=== PATIENT | female | born 1995 | race Caucasian/White ===

== ENCOUNTER 2020-10-19 16:50 | Emergency (ER) | payer MEDICAID ==
[~2020-10-19] VITALS: Ht 157.5 cm; Wt 50.8 kg
--- NOTE | 2020-10-19 17:06 | NUR ---
BIBS FROM HOME TO ER BED 17. AAOX4. NOT IN RESP DISTRESS. AMBULATORY. APPEARS ANXIOUS. CAME IN FOR VAGINAL DISCHARGE DESCRIBED LIGHT BROWN LIGHT PINK DISCHARGE WHEN WIPPING STARTED YESTERDAY. PT REPORTS SHE IS PREGNENT 5 WEEKS. BEGGINGING OF LAST LMP 09/11/20. AWAITING MD.
[2020-10-19] MEDS ORDERED: IV NS 0.9% 1,000 ML BAG IV ONE (17:30)
[2020-10-19 17:40] LABS: BILIRUBIN,URINE NEGATIVE (NEGATIVE); COLOR,URINE YELLOW (YELLOW); LEUKOCYTE ESTERASE ,URINE NEGATIVE (NEGATIVE); NITRITE, URINE NEGATIVE (NEGATIVE); PROTEIN,URINE NEGATIVE (NEGATIVE); UGLUCOSE NEGATIVE (NEGATIVE); UROBILINOGEN,URINE 0.2 EU/dL (0.2)
--- NOTE | 2020-10-19 17:41 | NUR ---
pt refused IV NS. lab called for blood draw
[2020-10-19 18:01] LABS: BACTERIA,URINE None seen /HPF (None Seen); SQUAMOUS EPITHELIAL CELL,UR 0-2 /HPF (None Seen); WBC,URINE 0-2 /HPF (0-3)
[2020-10-19 18:09] LABS: BASOPHILS % (AUTO) 0.4 % (0.0-2.0); EOSINOPHILS % (AUTO) 1.2 % (0.0-6.0); HEMATOCRIT 37 % (33-45); HEMOGLOBIN 12.5 g/dL (11.5-14.8); LYMPHOCYTES # (AUTO) 1.6 /CMM (0.8-4.8); LYMPHOCYTES % (AUTO) 25.9 % (20.0-44.0); MEAN CORPUSCULAR HGB CONC 34 g/dl (31.0-36.0); MEAN CORPUSCULAR VOLUME 89 fL (82-100); MONOCYTES # (AUTO) 0.5 /CMM (0.1-1.30); MONOCYTES % (AUTO) 7.5 % (2.0-12.0); NEUTROPHILS # (AUTO) 4.1 /CMM (1.8-8.9); PLATELET COUNT (AUTO) 195 /CMM (150-450); RED BLOOD CELL COUNT(AUTO) 4.14 MIL/uL (4.0-5.2); WHITE BLOOD COUNT (AUTO) 6.3 K/uL (4.3-11.0)
[2020-10-19 18:25] LABS: CALCIUM, SERUM 9.1 mg/dL (8.5-10.1); CREATININE 0.6 mg/dL (0.6-1.3); POTASSIUM 4.2 mmol/L (3.5-5.1)
--- NOTE | 2020-10-19 18:37 | NUR ---
NOT CANDIDATE FOR RHOGAM
--- NOTE | 2020-10-19 19:45 | NUR ---
Patient discharged to home in stable condition. Written and verbal after care instructions given. Patient verbalizes understanding of instruction. pT ambulatory with a steady gait
[2020-10-19 19:59] VITALS: BP 120/59
== END 2020-10-19 19:45 | disposition home or self-care (01) ==
LOC: ER 17:02
DX: O20.0 Threatened abortion (principal)
CPT/HCPCS: 36415; 76856-TC; 80048-TC; 81001; 84702-TC; 85025-TC; J7030

== ENCOUNTER 2025-02-01 09:33 | Emergency (ER) | payer MEDICAID, OTHER ==
[~2025-02-01] VITALS: Ht 160 cm; Wt 51.7 kg
[2025-02-01] MEDS ORDERED: IBUPROFEN 600 MG TABLET ONE (10:01)
[2025-02-01] MEDS: IBUPROFEN 600 MG TABLET PO ONE (10:05)
[2025-02-01 12:31] VITALS: BP 125/70; TEMP 98.7; O2SAT 100
== END 2025-02-01 12:30 | disposition home or self-care (01) ==
LOC: ER 09:52
DX: J34.89 Other specified disorders of nose and nasal sinuses (principal); Z60.2 Problems related to living alone
CPT/HCPCS: 70160-TC